=== PATIENT | female | born 1980 | race Caucasian/White ===

== ENCOUNTER → 2021-02-08 01:08 | Outpatient (CLI) | payer BC, SELFPAY ==
[2021-02-08 20:46] LABS: SARS-CoV-2 RNA PCR Negative
== END ==
PROVIDERS: PCP Nurse Practitioner Adult Health; Visit Provider Obstetrics & Gynecology
DX: Z01.812 Encounter for preprocedural laboratory examination (principal); Z20.822 Contact with and (suspected) exposure to COVID-19
CPT/HCPCS: C9803; U0003; U0005

== ENCOUNTER 2021-02-08 09:19 | Outpatient (CLI) | payer BC, SELFPAY ==
--- NOTE | 2021-02-08 09:23 | ECG_ITS ---
Measurements Intervals [place] Rate: 75 P: 0 MS: 111 QRS: -14 QRSD: 86 T: 19 QT: 355 QTc: 397 Interpretive Statements SINUS RHYTHM WITH SHORT MS INTERVAL DELAYED PRECORDIAL R/S TRANSITION BASELINE ARTIFACT- I, II, III, AVR, AVL, AVF BORDERLINE ECG Electronically Signed On 02-08-2021 9:44:29 CDT by Larry Mccarthy D.O.
== END 2021-02-08 09:20 | disposition home or self-care (01) ==
LOC: ANHSURGERY 09:22
PROVIDERS: PCP Nurse Practitioner Adult Health; Visit Provider Obstetrics & Gynecology
DX: Z01.810 Encounter for preprocedural cardiovascular examination (principal)
CPT/HCPCS: 93005

== ENCOUNTER 2021-02-11 00:54 | Day surgery (SDC) | payer BC, SELFPAY ==
[2021-02-03 10:32] VITALS: BMI 37.0
--- NOTE | 2021-02-08 10:36 | PM.IMHP ---
H&P: HPI History of Present Illness Date/Time: 02/08/21 10:36 41-year-old 1 para 1 admitted for tubal ligation and removal next. She has had irregular bleeding she desires permanent irreversible sterilization alternatives including the exclusive wesley patches pills IUDs Fedder she had all questions answered as proceed Chief Complaint: virus permanent sterilization Review of Systems Review of Systems: All systems reviewed & are unremarkable except as noted in HPI and below PMFSH Social History Social History Smoking status: Never smoker Alcohol intake: never Substance use: never Substance use type: does not use Spiritual care concerns: No Meds Home Medications and Allergies Home Medications Medication Instructions Recorded Confirmed Type biotin 10,000 mcg PO DAILY 02/03/21 02/03/21 History escitalopram oxalate 5 mg PO DAILY 02/03/21 02/03/21 History lisinopril 10 mg PO DAILY 02/03/21 02/03/21 History Allergies Allergy/AdvReac Type Severity Reaction Status Date / Time No Known Allergies Allergy Verified 02/03/21 10:30 Exam Const: General: no acute distress Eyes: General: appearance normal, both eyes and all related structures Neck: Neck: supple and no JVD Thyroid: thyroid normal Resp: Effort & Inspection: normal respiratory effort Auscultation: clear to auscultation bilaterally Cardio: Rate: regular rate Rhythm: regular rhythm GI: Inspection: non-distended GI Palp: Yes Soft to palpation, No Tenderness to palpation present (GI) and No Guarding due to palpation present (GI) Auscultation: normal bowel sounds : General: Yes bladder normal to palpation External Female Exam: normal external appearance Speculum Exam - Vagina: normal vaginal discharge and No vaginal bleeding Speculum Exam - Cervix: nontender Bimanual exam- vagina & uterus: bladder normal to palpation and No Cervical tenderness present OB/external & speculum: No vaginal bleeding Skin: General skin exam: no rashes or lesions noted Extrem: General: normal to inspection and no edema Psych: Mental Status: mental status grossly normal Affect: normal affect Assessment and Plan Additional Plan aggression desires permanent sterilization and removal Plan: Laparoscopic tubal ligation / removal of Nexplanon
--- NOTE | 2021-02-10 12:55 | WPDANESEPPF ---
Anes - Initial Pre Proc Eval Procedure: Operation Date: 02/11/21 10:30 Proposed Procedures p Laparoscopic Tubal Sterilization With Fallopian Rings, Removal Of Nexplanon - Omer John MD Date/Time: 02/10/21 12:55 Surgeon: Omer John MD Pre Op Diagnosis: Desires Sterilization Patient Data Age: 41 Gender: F Height: 1.68 m Weight: 104.3 kg Allergies Allergy/AdvReac Type Severity Reaction Status Date / Time No Known Allergies Allergy Verified 02/11/21 08:39 Home Medications Medication Instructions Recorded Confirmed Type biotin 10,000 mcg PO DAILY 02/03/21 02/11/21 History escitalopram oxalate 5 mg PO DAILY 02/03/21 02/11/21 History lisinopril 10 mg PO DAILY 02/03/21 02/11/21 History hydrocodone-acetaminophen 1 tablet PO Q4H PRN #30 tablet 02/11/21 Rx Patient hx anesthesia problems: none Family hx anesthesia problems: none PMFSH Past Medical History Medical History (Updated 02/11/21 @ 05:55 by Omer John MD) Anxiety Hypertension Surgical History Surgical History (Updated 02/10/21 @ 12:56 by Zhou Ansari DO) History of Hx of breast reduction, elective Social History Social History Smoking status: Never smoker Alcohol intake: never Substance use: never Substance use type: does not use Living arrangements: with family Spiritual care concerns: No Anes - Eval Final PreProcedure Day of Procedure 02/10/21 12:55 Patient weight: obese Heart: regular rate and rhythm Lungs: clear to auscultation and normal air movement Airway: Mallampati scale class III Neurological: alert and oriented Last oral intake: >/= 8 hours ASA classification: III Emergent: no Anesthetic plan: proceed Anesthesia type and monitoring: general ETT and standard monitoring Informed Consent: The patient's anesthetic plan and its attendant risks and benefits were discussed with the patient/family/POA. Questions were solicited and answers provided to the satisfaction of the patient/family/POA.
[2021-02-11] VITALS (10 sets, daily range): BP systolic 91–137; BP diastolic 45–90; PULSE 53–72; RESP 12–16; TEMP 36.7–37.3; O2SAT 97–100
--- NOTE | 2021-02-11 05:54 | WPDHPUPDATE1 ---
History and Physical Update Update Date/Time: 02/11/21 05:54 History and Physical has been reviewed, including an updated exam of the patient. There are NO changes in the patient's condition. Risks, benefits, and alternatives have been discussed and questions answered. Patient agrees to proceed with procedure.
[2021-02-11] MEDS: LACTATED RINGERS 1,000 ML 30 ML IV CONT ×2 (09:03→11:27)
[2021-02-11] MEDS: ACETAMINOPHEN 500 MG TABLET 1000 MG PO (09:03)
[2021-02-11] MEDS: KETOROLAC 15 MG/ML VIAL (*BKC) IV PUSH (09:04)
--- NOTE | 2021-02-11 10:40 | PM.PROC ---
Procedure Note - Detailed Date of procedure: 02/11/21 Pre-op diagnosis: Desires Sterilization Surgeon: Omer John MD Postop diagnosis: Desires sterilization/removal of Nexplanon/endometriosis Procedure: Laparoscopic bilateral tubal ligation with rings/destruction of endometriosis/removal of Nexplanon Anesthesia: General endotracheal EBL: 5cc Findings: Normal-appearing uterus with 2 small fibroids. Normal-appearing tubes and ovaries. Endometriosis in the cul-de-sac on each uterosacral ligament Complications: None Description of procedure: The patient was prepped draped in the normal sterile fashion and placed in the dorsal lithotomy position. Under excellent general endotracheal anesthesia weighted speculum was placed in posterior fornix of vagina. Anterior lip of the cervix was grasped with a single-tooth tenaculum in the Bermeo's cannulated inserted to the cervix. These were attached to be used later for uterine manipulation. The weighted speculum was removed and the bladder drained of clear urine. Gloves were changed A supraumbilical incision made the Veress needle passed in the abdomen. The abdomen filled with CO2 gas [id number]. The 5mm trocar advanced under direct visualization assuring no injury. The patient was placed in Trendelenburg and a suprapubic incision made. The 8mm trocar advanced in the abdomen under direct visualization assuring no injury. The right fallopian tube was grasped at its midportion a good knuckle of tube formed with the Falope rings. Blanching was seen. In like fashion the left fallopian tube was grasped with its midportion and a good knuckle of tube formed with the fallopian tube ring. Photo documentation was undertaken. Two small fibroids were seen on the uterus about 0.5cm in size. Endometrial implants in the form of powder burn were seen along each uterosacral ligament. The 35 w monopolar cautery was used to destroy these without difficulty. Irrigation undertaken to clear. Photo documentation undertaken. The lower sites removed. The gas removed from the abdomen. The trocar sites removed and the incisions closed with 4 Monocryl and glue. The instruments removed from the vagina. The patient was awakened and went to recovery in satisfactory condition. All sponge, needle, instrument counts were correct. There were no immediate complications
[2021-02-11] MEDS: oxyCODONE HCL (*CRX) 5 MG TAB IR PO (12:01)
--- NOTE | 2021-02-23 11:21 | PM.OBTRLD ---
OB - Triage/Final Diagnosis Visit Information Date of evaluation: 02/23/21 Reason for evaluation: threatened labor Comments/Additional reasons for admission: I have assessed the risk for this patient, [place] Marcy Mendoza, and determined that she would benefit from observation care.
== END 2021-02-11 13:00 | disposition home or self-care (01) ==
PROVIDERS: PCP Nurse Practitioner Adult Health; Visit Provider Obstetrics & Gynecology
PROC: (CPT 58671; principal; 2021-02-11 10:30)
DX: Z30.2 Encounter for sterilization (principal); N80.3 Endometriosis of pelvic peritoneum; Z30.46 Encounter for surveillance of implantable subdermal contraceptive; D25.9 Leiomyoma of uterus, unspecified; I10 Essential (primary) hypertension; F41.9 Anxiety disorder, unspecified; E66.9 Obesity, unspecified; Z68.38 Body mass index [BMI] 38.0-38.9, adult
CPT/HCPCS: 58671; 11982; A4264; A9270; J0330; J1100; J1885; J2250; J2405; J2704; J3010; J7120